=== PATIENT | female | born 1940 | race Caucasian/White ===

== ENCOUNTER → 2017-12-17 | Outpatient (CLI) | payer MEDICARE, BC ==
--- NOTE | 2017-12-18 07:30 | US ---
EXAMINATION TYPE: US carotid duplex BILAT DATE OF EXAM: 12/17/2017 COMPARISON: NONE CLINICAL HISTORY: I65.23 CAROTID BRUIT. Patient not aware which side carotid bruit was auscultated EXAM MEASUREMENTS: RIGHT: Peak Systolic Velocity (PSV) cm/sec ----- Right CCA: 70.2 ----- Right ICA: 100.9 ----- Right ECA: 81.1 ICA/CCA ratio: 1.4 RIGHT: End Diastole cm/sec ----- Right CCA: 19.7 ----- Right ICA: 22.7 ----- Right ECA: 11.7 LEFT: Peak Systolic Velocity (PSV) cm/sec ----- Left CCA: 73.4 ----- Left ICA: 66.7 ----- Left ECA: 70.0 ICA/CCA ratio: 0.9 LEFT: End Diastole cm/sec ----- Left CCA: 16.1 ----- Left ICA: 22.7 ----- Left ECA: 2.9 VERTEBRALS (direction of flow): Right Vertebral: Antegrade Left Vertebral: Antegrade Rhythm: Normal Mild, irregular intimal wall thickening is noted at bilateral carotid bifurcation, but PSV is wnl julio aterally. IMPRESSION: Mild degree of grayscale atheromatous plaquing with no sonographically evident hemodyna mically significant stenosis within either visualized carotid arterial system.
== END | disposition home or self-care (01) ==
LOC: RADUSWWP 16:05
PROVIDERS: ATTEND Family Medicine
DX: I65.23 Occlusion and stenosis of bilateral carotid arteries (principal)
CPT/HCPCS: 93880

== ENCOUNTER 2018-04-30 10:31 | Emergency (ER) | payer MEDICARE, BC ==
[2018-04-30 10:53] VITALS: RESP 18
[2018-04-30] MEDS ORDERED: MORPHINE SULFATE 4 MG/ML SYRINGE IV STA (11:32)
[2018-04-30] MEDS ORDERED: SODIUM CHLORIDE 0.9% 1,000 ML IV STA (11:32)
[2018-04-30] MEDS ORDERED: DOCUSATE 283 MG/5 ML ENEMA RECTAL STA (11:33)
--- NOTE | 2018-04-30 12:10 | ED ---
Abdominal Pain HPI - General Chief Complaint: Abdominal Pain Stated Complaint: severe abdominal & back pain Time Seen by Provider: 04/30/18 11:08 Source: patient, RN notes reviewed, old records reviewed Mode of arrival: ambulatory Limitations: no limitations - History of Present Illness Initial Comments: Patient is a 78-year-old female process restarts a chief complaint of one month of intermittent back pain and upper abdominal pain. Patient reports it's worse with certain movements. She's been evaluated multiple times in the ER. Patient has had this 2 CT scans, ultrasounds within the past month for his pain. Patient's states that she's not been able to have a bowel movement in the past week. She reports that she has no sensation that she needs to go to the bathroom. She's had normal urination. - Related Data Home Medications Medication Instructions Recorded Confirmed Tolterodine ER [Detrol LA] 4 mg PO DAILY 02/18/16 04/30/18 Aspirin EC [Ecotrin Low Dose] 81 mg PO DAILY 04/30/18 04/30/18 Levothyroxine Sodium [Synthroid] 125 mcg PO DAILY 04/30/18 04/30/18 Multivit-Min/Iron/Folic/Lutein 1 tab PO DAILY 04/30/18 04/30/18 [Centrum Silver Women Tablet] Sulindac 200 mg PO BID 04/30/18 04/30/18 Previous Rx's Medication Instructions Recorded traMADol HCl [Ultram] 50 mg PO Q6HR PRN 3 Days #12 tab 04/30/18 Allergies Allergy/AdvReac Type Severity Reaction Status Date / Time No Known Allergies Allergy Verified 04/30/18 11:34 Review of Systems ROS Statement: Those systems with pertinent positive or pertinent negative responses have been documented in the HPI. ROS Other: All systems not noted in ROS Statement are negative. Past Medical History Past Medical History: Thyroid Disorder Additional Past Medical History / Comment(s): pt had bilateral pulmonary embolism JAN 2016 History of Any Multi-Drug Resistant Organisms: None Reported Past Surgical History: Hysterectomy, Joint Replacement Additional Past Surgical History / Comment(s): knee replacement Past Psychological History: No Psychological Hx Reported Smoking Status: Never smoker Past Alcohol Use History: None Reported Past Drug Use History: None Reported General Exam - General Exam Comments Initial Comments: 78-year-old female. Alert and oriented 3. Patient appears in moderate discomfort movement. Limitations: no limitations General appearance: alert, in no apparent distress Head exam: Present: atraumatic, normocephalic, normal inspection Eye exam: Present: normal appearance ENT exam: Present: normal exam, mucous membranes moist Neck exam: Present: normal inspection. Absent: tenderness, meningismus, lymphadenopathy Respiratory exam: Present: normal lung sounds bilaterally. Absent: respiratory distress, wheezes, rales, rhonchi, stridor Cardiovascular Exam: Present: regular rate, normal rhythm, normal heart sounds. Absent: systolic murmur, diastolic murmur, rubs, gallop, clicks GI/Abdominal exam: Present: soft, tenderness (Epigastric tenderness worse with certain movements.), normal bowel sounds, other (Tenderness over the thoracic back). Absent: distended, guarding, rebound, rigid Extremities exam: Present: normal inspection, full ROM, normal capillary refill. Absent: tenderness, pedal edema, joint swelling, calf tenderness Back exam: Present: normal inspection Neurological exam: Present: alert, oriented X3, CN II-XII intact Psychiatric exam: Present: normal affect, normal mood Course Vital Signs 04/30/18 04/30/18 10:49 14:16 Temperature 98 F Pulse Rate 79 88 Respiratory 18 18 Rate Blood Pressure 128/82 145/69 O2 Sat by Pulse 98 96 Oximetry - Reevaluation(s) Reevaluation #1: 04/30/18 14:32 Patient was given an enema and has significant amount of stool removed. She feels much better at this time. Patient is have some pain with certain movements. I reviewed all of her lab work and previous ultrasounds imaging. The pains are muscular in nature. Medical Decision Making - Medical Decision Making 38-year-old female presents returns today with 1 month of back pain is worse with movement as well as Patient being transferred of her abdomen. At this time Patient has normal lab work. She's had reviewing of patient's previous CTs within the past 2 weeks as well as her ultrasound. These were negative for any acute pathology. Patient's lab work for today and stable from her previous hospitalization. Her hemoglobin was slightly low at 10.4 with this is the same as her last hospitalization. Patient states case discussed with Dr. Aguirre. This time recommended patient's pain seems to be muscle skeletally ensure we'll give her a short course of pain medication as well as stool softeners. She did have a large bowel movement and feels better after having an enema. I advised Patient to perform outpatient HIDA scan with close follow-up with her primary care physician. - Lab Data Result diagrams: 04/30/18 11:49 04/30/18 11:49 Lab Results 04/30/18 04/30/18 04/30/18 Range/Units 11:40 11:49 11:49 WBC 10.4 (3.8-10.6) k/uL RBC 3.79 L (3.80-5.40) m/uL Hgb 10.2 L (11.4-16.0) gm/dL Hct 33.0 L (34.0-46.0) % MCV 86.9 (80.0-100.0) fL MCH 27.0 (25.0-35.0) pg MCHC 31.0 (31.0-37.0) g/dL RDW 14.2 (11.5-15.5) % Plt Count 529 H (150-450) k/uL Neutrophils % 75 % Lymphocytes % 14 % Monocytes % 6 % Eosinophils % 4 % Basophils % 1 % Neutrophils # 7.8 H (1.3-7.7) k/uL Lymphocytes # 1.5 (1.0-4.8) k/uL Monocytes # 0.6 (0-1.0) k/uL Eosinophils # 0.4 (0-0.7) k/uL Basophils # 0.1 (0-0.2) k/uL Hypochromasia Slight PT 10.0 (9.0-12.0) sec INR 0.9 (<1.2) APTT 24.9 (22.0-30.0) sec Sodium 138 (137-145) mmol/L Potassium 4.3 (3.5-5.1) mmol/L Chloride 105 (98-107) mmol/L Carbon Dioxide 24 (22-30) mmol/L Anion Gap 9 mmol/L BUN 20 H (7-17) mg/dL Creatinine 1.00 (0.52-1.04) mg/dL Est GFR (CKD-EPI)AfAm 63 (>60 ml/min/1.73 sqM) Est GFR (CKD-EPI)NonAf 55 (>60 ml/min/1.73 sqM) Glucose 98 (74-99) mg/dL Calcium 9.6 (8.4-10.2) mg/dL Total Bilirubin 0.5 (0.2-1.3) mg/dL AST 23 (14-36) U/L ALT 16 (9-52) U/L Alkaline Phosphatase 96 (38-126) U/L Total Protein 8.1 (6.3-8.2) g/dL Albumin 3.9 (3.5-5.0) g/dL Amylase 97 (30-110) U/L Lipase 116 (23-300) U/L Urine Color Urine Appearance (Clear) Urine pH (5.0-8.0) Ur Specific [place] (1.001-1.035) Urine Protein (Negative) Urine Glucose (UA) (Negative) Urine Ketones (Negative) Urine Blood (Negative) Urine Nitrite (Negative) Urine Bilirubin (Negative) Urine Urobilinogen (<2.0) mg/dL Ur Leukocyte Esterase (Negative) Urine RBC (0-5) /hpf Urine WBC (0-5) /hpf Ur Squamous Epith Cells (0-4) /hpf Urine Bacteria (None) /hpf Urine Mucus (None) /hpf Stool Occult Blood (Negative) 04/30/18 04/30/18 Range/Units 12:40 13:39 WBC (3.8-10.6) k/uL RBC (3.80-5.40) m/uL Hgb (11.4-16.0) gm/dL Hct (34.0-46.0) % MCV (80.0-100.0) fL MCH (25.0-35.0) pg MCHC (31.0-37.0) g/dL RDW (11.5-15.5) % Plt Count (150-450) k/uL Neutrophils % % Lymphocytes % % Monocytes % % Eosinophils % % Basophils % % Neutrophils # (1.3-7.7) k/uL Lymphocytes # (1.0-4.8) k/uL Monocytes # (0-1.0) k/uL Eosinophils # (0-0.7) k/uL Basophils # (0-0.2) k/uL Hypochromasia PT (9.0-12.0) sec INR (<1.2) APTT (22.0-30.0) sec Sodium (137-145) mmol/L Potassium (3.5-5.1) mmol/L Chloride (98-107) mmol/L Carbon Dioxide (22-30) mmol/L Anion Gap mmol/L BUN (7-17) mg/dL Creatinine (0.52-1.04) mg/dL Est GFR (CKD-EPI)AfAm (>60 ml/min/1.73 sqM) Est GFR (CKD-EPI)NonAf (>60 ml/min/1.73 sqM) Glucose (74-99) mg/dL Calcium (8.4-10.2) mg/dL Total Bilirubin (0.2-1.3) mg/dL AST (14-36) U/L ALT (9-52) U/L Alkaline Phosphatase (38-126) U/L Total Protein (6.3-8.2) g/dL Albumin (3.5-5.0) g/dL Amylase (30-110) U/L Lipase (23-300) U/L Urine Color Yellow Urine Appearance Cloudy H (Clear) Urine pH 5.5 (5.0-8.0) Ur Specific [place] 1.015 (1.001-1.035) Urine Protein Trace H (Negative) Urine Glucose (UA) Negative (Negative) Urine Ketones Negative (Negative) Urine Blood Trace H (Negative) Urine Nitrite Negative (Negative) Urine Bilirubin Negative (Negative) Urine Urobilinogen <2.0 (<2.0) mg/dL Ur Leukocyte Esterase Large H (Negative) Urine RBC 9 H (0-5) /hpf Urine WBC 11 H (0-5) /hpf Ur Squamous Epith Cells 12 H (0-4) /hpf Urine Bacteria Rare H (None) /hpf Urine Mucus Rare H (None) /hpf Stool Occult Blood Negative (Negative) - Radiology Data Radiology results: report reviewed Stable splenic cyst. Nephrolithiasis on the left. Disposition Clinical Impression: Constipation, Back pain, Upper abdominal pain Disposition: HOME SELF-CARE Condition: Good Instructions (If sedation given, give patient instructions): Abdominal Pain (ED ) Additional Instructions: Patient has a close follow-up with your primary care physician. Patient should perform outpatient HIDA scan test. Return to the emergency department if any alarming signs or symptoms occur. Prescriptions: traMADol HCl [Ultram] 50 mg PO Q6HR PRN 3 Days #12 tab PRN Reason: Pain Is patient prescribed a controlled substance at d/c from ED?: Yes When asked, does pt state using other controlled substances?: No If prescribed controlled substance>3 days was MAPS reviewed?: Prescribed <3 Days If opioid is for acute pain is fill amount 7 days or less?: Yes If Rx opioid, was Start Talking consent form obtained?: Yes Referrals: None,Stated [Primary Care Provider] - 1-2 days Chai Patterson MD [STAFF PHYSICIAN] - 1-2 days Time of Disposition: 14:37
[2018-04-30 12:12] LABS: Basophils # (A) 0.1 k/uL (0-0.2); Basophils % (A) 1 %; Eosinophils # (A) 0.4 k/uL (0-0.7); Eosinophils % (A) 4 %; HGB 10.2 gm/dL (11.4-16.0); Hypochromasia Slight; Lymphocytes # (A) 1.5 k/uL (1.0-4.8); Lymphocytes % (A) 14 %; MCV 86.9 fL (80.0-100.0); Mean Platelet Volume 6.5; Monocytes # (A) 0.6 k/uL (0-1.0); Monocytes % (A) 6 %; Neutrophils # (A) 7.8 k/uL (1.3-7.7); Neutrophils % (A) 75 %; Platelet Count 529 k/uL (150-450); RBC 3.79 m/uL (3.80-5.40); RDW 14.2 % (11.5-15.5); WBC 10.4 k/uL (3.8-10.6)
[2018-04-30 12:27] LABS: Albumin 3.9 g/dL (3.5-5.0); Calcium 9.6 mg/dL (8.4-10.2); Potassium 4.3 mmol/L (3.5-5.1); Total Bilirubin 0.5 mg/dL (0.2-1.3); Total Protein 8.1 g/dL (6.3-8.2)
[2018-04-30 12:34] LABS: INR 0.9 (<1.2); Partial Thromboplastin Time 24.9 sec (22.0-30.0)
--- NOTE | 2018-04-30 12:52 | XR ---
Abdomen HISTORY: Pain Frontal view the abdomen on 2 images correlated to prior abdomen 10/04/2017, CT abdomen 02/18/2016 The spherical calcification in the left upper quadrant associated with the spleen cyst is stable. Inc reased density seen over the lower pole of the left kidney compatible with patient's nephrolithiasis. There is no pneumoperitoneum or bowel obstruction. Spinal curvature is again noted. There are degene rative disc changes of the lower lumbar spine. Sclerotic focus is stable in the right femoral head. L liliana bases are clear. IMPRESSION: Stable splenic cyst calcification. Nephrolithiasis on the left.
[2018-04-30 13:26] LABS: Appearance,Urine Cloudy (Clear); Bacteria,Urine Rare /hpf; Bilirubin,Urine Negative (Negative); Blood,Urine Trace (Negative); Color,Urine Yellow; Glucose,Urine (UA) Negative (Negative); Ketones,Urine Negative (Negative); Leukocyte Esterase,Urine Large (Negative); Mucus,Urine Rare /hpf; Nitrite,Urine Negative (Negative); PH, Urine 5.5 (5.0-8.0); Protein,Urine Trace (Negative); RBC,Urine 9 /hpf (0-5); Specific Gravity,Urine 1.015 (1.001-1.035); Squamous Epithelial Cell,Urine 12 /hpf (0-4); Urobilinogen,Urine <2.0 mg/dL (<2.0); WBC,Urine 11 /hpf (0-5)
[2018-04-30 15:12] VITALS: BP 128/66; PULSE 82; TEMP 101
== END 2018-04-30 15:11 | disposition home or self-care (01) ==
LOC: EC 10:31
DX: K59.00 Constipation, unspecified (principal); M54.9 Dorsalgia, unspecified; D64.9 Anemia, unspecified; E07.9 Disorder of thyroid, unspecified; Z90.710 Acquired absence of both cervix and uterus; Z96.659 Presence of unspecified artificial knee joint; Z79.82 Long term (current) use of aspirin; Z79.890 Hormone replacement therapy; Z79.1 Long term (current) use of non-steroidal anti-inflammatories (NSAID); Z79.899 Other long term (current) drug therapy; Z53.8 Procedure and treatment not carried out for other reasons
CPT/HCPCS: 36415; 80053; 82150; 83690; 85025; 85610; 85730; 82272; 81001; 74018; 99284; 96374; 96361; J2270

== ENCOUNTER 2023-02-01 07:43 | Day surgery (SDC) | payer BC, MEDICARE ==
[2023-01-29 16:01] VITALS: BMI 29.8
[~2023-02-01 07:43] MED LIST: LACTATED RINGERS 1,000 ML IV SCH
[2023-02-01] MEDS ORDERED: LIDOCAINE 1% (10MG/ML) FOR IV START INTRADERMA ONE (08:20)
[2023-02-01 08:28] VITALS: TEMP 98.8
[2023-02-01] MEDS ORDERED: LIDOCAINE 1% INJ 10MG/ML (20 ML MDV) ONE (08:48)
[2023-02-01] MEDS ORDERED: PROPOFOL 10 MG/ML 20 ML VIAL IV ONE (08:48)
--- NOTE | 2023-02-01 08:51 | P.GSHP ---
History of Present Illness H&P Date: 02/01/23 Chief Complaint: Diarrhea This is a 82-year-old female who has complaints of diarrhea. Patient presents today for colonoscopy Past Medical History Past Medical History: Osteoarthritis (OA), Pulmonary Embolus (PE), Thyroid Disorder Additional Past Medical History / Comment(s): bilateral pulmonary embolism JAN 2016, states stomach cramps with bowel movements., left hip pain, hx kidney stones., hx of "blood infection " after back surgery with out pt antibiotic tx. History of Any Multi-Drug Resistant Organisms: None Reported Past Surgical History: Back Surgery, Hysterectomy, Joint Replacement Additional Past Surgical History / Comment(s): total left knee replacement, back surgery with hardware. Past Anesthesia/Blood Transfusion Reactions: No Reported Reaction Past Psychological History: No Psychological Hx Reported Smoking Status: Never smoker Past Alcohol Use History: None Reported Past Drug Use History: None Reported - Past Family History Mother Family Medical History: No Reported History Medications and Allergies Home Medications Medication Instructions Recorded Confirmed Type Tolterodine ER [Detrol LA] 4 mg PO DAILY 02/18/16 01/29/23 History Aspirin EC [Ecotrin Low Dose] 81 mg PO DAILY 04/30/18 01/29/23 History Sulindac 200 mg PO DAILY 04/30/18 01/29/23 History Cranberry Fruit Extract [Cranberry] 500 mg PO DAILY 01/29/23 01/29/23 History Gabapentin [Neurontin] 300 mg PO BID 01/29/23 01/29/23 History Levothyroxine Sodium 112 mcg PO DAILY 01/29/23 01/29/23 History Multivit with Calcium,Iron,Min 1 each PO DAILY 01/29/23 01/29/23 History [Women's Multivitamin] Allergies Allergy/AdvReac Type Severity Reaction Status Date / Time No Known Allergies Allergy Verified 02/01/23 08:05 Surgical - Exam Vital Signs Temp Pulse Resp BP Pulse Ox 98.8 F 82 16 138/62 95 02/01/23 08:07 02/01/23 08:07 02/01/23 08:07 02/01/23 08:07 02/01/23 08:07 - General well developed, well nourished, no distress - Eyes PERRL - ENT normal pinna - Neck no masses - Respiratory normal expansion - Cardiovascular Rhythm: regular - Abdomen Abdomen: soft, non tender Assessment and Plan Assessment: Diarrhea. We'll perform colonoscopy.
--- NOTE | 2023-02-01 09:04 | P.OP ---
Date of Procedure: 02/01/23 Preoperative Diagnosis: Diarrhea Postoperative Diagnosis: Diverticulosis Procedure(s) Performed: Colonoscopy Anesthesia: MAC Surgeon: Chai Patterson Pathology: none sent Condition: stable Disposition: PACU Description of Procedure: Patient's placed on the endoscopy table in the lateral position. She received IV sedation. The digital rectal exam was performed. This revealed no abnormalities. Flexible colonoscope was then placed patient anus and passed throughout the colon. Patient extensive diverticular disease and sigmoid colon. Scope was passed beyond the left colon. At this point the scope was withdrawn. The diverticular changes were noted;. The scope back the rectum this appeared normal. Scope withdrawn for patient. Patient scheduled for a barium enema.
[2023-02-01 09:38] VITALS: BP 142/71; PULSE 67; RESP 18
== END 2023-02-01 10:50 | disposition home or self-care (01) ==
LOC: ORWHC2ENDO 07:43
PROVIDERS: ATTEND Surgery
DX: K57.30 Diverticulosis of large intestine without perforation or abscess without bleeding (principal); M19.90 Unspecified osteoarthritis, unspecified site; E07.9 Disorder of thyroid, unspecified; Z87.442 Personal history of urinary calculi; Z86.711 Personal history of pulmonary embolism; Z79.82 Long term (current) use of aspirin; Z79.890 Hormone replacement therapy; Z79.899 Other long term (current) drug therapy; Z90.710 Acquired absence of both cervix and uterus; Z98.890 Other specified postprocedural states
CPT/HCPCS: J2001; J2704; G0121; 45378

== ENCOUNTER 2023-02-01 12:42 | Emergency (ER) | payer MEDICARE ==
[2023-02-01 13:03] VITALS: TEMP 97.5
[2023-02-01] MEDS ORDERED: ONDANSETRON ODT 4 MG TAB PO STA (13:29)
--- NOTE | 2023-02-01 13:44 | ED ---
Nausea/Vomiting/Diarrhea HPI - General Source: patient, RN notes reviewed Mode of arrival: wheelchair Limitations: no limitations <Shawn Plasencia - Last Filed: 02/01/23 13:42> <Los Guzman - Last Filed: 02/01/23 18:39> - General Chief complaint: Nausea/Vomiting/Diarrhea Stated complaint: abd pain and nausea from endo Time Seen by Provider: 02/01/23 13:42 - History of Present Illness Initial comments: 82-year-old female presents emergency from from endoscopy after she started developing nausea vomiting and lightheadedness. Patient states that she has not eaten anything since Sunday. Patient states she went to have a colonoscopy and endoscopy but there was too much scar tissue they attempted to bear swallow but she gets sick and she was sent here. (Shawn Plasencia) - Related Data Home Medications Medication Instructions Recorded Confirmed Tolterodine ER [Detrol LA] 4 mg PO DAILY 02/18/16 01/29/23 Aspirin EC [Ecotrin Low Dose] 81 mg PO DAILY 04/30/18 01/29/23 Sulindac 200 mg PO DAILY 04/30/18 01/29/23 Cranberry Fruit Extract [Cranberry] 500 mg PO DAILY 01/29/23 01/29/23 Gabapentin [Neurontin] 300 mg PO BID 01/29/23 01/29/23 Levothyroxine Sodium 112 mcg PO DAILY 01/29/23 01/29/23 Multivit with Calcium,Iron,Min 1 each PO DAILY 01/29/23 01/29/23 [Women's Multivitamin] Allergies Allergy/AdvReac Type Severity Reaction Status Date / Time No Known Allergies Allergy Verified 02/01/23 12:59 Review of Systems ROS Other: All systems not noted in ROS Statement are negative. <Shawn Plasencia - Last Filed: 02/01/23 13:42> ROS Other: All systems not noted in ROS Statement are negative. <Los Guzman - Last Filed: 02/01/23 18:39> ROS Statement: Those systems with pertinent positive or pertinent negative responses have been documented in the HPI. Past Medical History Past Medical History: Osteoarthritis (OA), Pulmonary Embolus (PE), Thyroid Disorder Additional Past Medical History / Comment(s): bilateral pulmonary embolism JAN 2016, states stomach cramps with bowel movements., left hip pain, hx kidney stones., hx of "blood infection " after back surgery with out pt antibiotic tx. History of Any Multi-Drug Resistant Organisms: None Reported Past Surgical History: Back Surgery, Hysterectomy, Joint Replacement Additional Past Surgical History / Comment(s): total left knee replacement, back surgery with hardware. Past Anesthesia/Blood Transfusion Reactions: No Reported Reaction Past Psychological History: No Psychological Hx Reported Smoking Status: Never smoker Past Alcohol Use History: None Reported Past Drug Use History: None Reported - Past Family History Mother Family Medical History: No Reported History <Shawn Plasencia - Last Filed: 02/01/23 13:42> General Exam Limitations: no limitations <Shawn Plasencia - Last Filed: 02/01/23 13:42> Limitations: no limitations General appearance: alert, in no apparent distress Head exam: Present: atraumatic, normocephalic Eye exam: Present: normal appearance. Absent: scleral icterus, conjunctival injection ENT exam: Present: normal oropharynx Neck exam: Present: normal inspection Respiratory exam: Present: normal lung sounds bilaterally. Absent: respiratory distress, wheezes, rales, rhonchi, stridor, accessory muscle use Cardiovascular Exam: Present: regular rate, normal rhythm, normal heart sounds. Absent: systolic murmur, diastolic murmur, rubs, gallop GI/Abdominal exam: Present: soft. Absent: distended, tenderness, guarding, rebound, rigid, mass, pulsatile mass, hernia Extremities exam: Present: normal inspection, normal capillary refill. Absent: pedal edema, calf tenderness Back exam: Present: normal inspection. Absent: CVA tenderness (R), CVA tenderness (L) Neurological exam: Present: alert Skin exam: Present: warm, dry, intact, normal color. Absent: rash <Los Guzman - Last Filed: 02/01/23 18:39> - General Exam Comments Initial Comments: Visual Physical Exam Vital signs reviewed General: Well-appearing, nontoxic, no acute distress. Head: Normocephalic, atraumatic Eyes: PERRLA, EOMI ENT: Airway patent Chest: Nonlabored breathing Skin: No visual rash, normal skin tone Neuro: Alert and oriented 3 Musculoskeletal: No gross abnormalities (Shawn Plasencia) Course Vital Signs 02/01/23 02/01/23 02/01/23 12:56 15:23 16:42 Temperature 97.5 F L Pulse Rate 66 70 73 Respiratory 16 20 20 Rate Blood Pressure 143/64 145/78 117/37 O2 Sat by Pulse 97 98 97 Oximetry Medical Decision Making <Shawn Plasencia - Last Filed: 02/01/23 13:42> - Lab Data Result diagrams: 02/01/23 13:02 02/01/23 13:02 - EKG Data -: EKG Interpreted by Ok EKG shows normal: sinus rhythm, axis (Normal), intervals (Normal), QRS complexes (RSR prime, possible right ventricular conduction delay) Rate: normal (Rate 69 bpm) <WillkuldipLos - Last Filed: 02/01/23 18:39> - Medical Decision Making I completed the quick note portion of this chart signed Shawn Plasencia PA-C (Shawn Plasencia) - Lab Data Lab Results 02/01/23 02/01/23 02/01/23 Range/Units 13:02 13:02 13:02 WBC 8.8 (3.8-10.6) k/uL RBC 4.75 (3.80-5.40) m/uL Hgb 13.9 (11.4-16.0) gm/dL Hct 42.9 (34.0-46.0) % MCV 90.4 (80.0-100.0) fL MCH 29.3 (25.0-35.0) pg MCHC 32.4 (31.0-37.0) g/dL RDW 14.3 (11.5-15.5) % Plt Count 267 (150-450) k/uL MPV 8.0 Neutrophils % 87 % Lymphocytes % 9 % Monocytes % 3 % Eosinophils % 1 % Basophils % 0 % Neutrophils # 7.6 (1.3-7.7) k/uL Lymphocytes # 0.8 L (1.0-4.8) k/uL Monocytes # 0.3 (0-1.0) k/uL Eosinophils # 0.1 (0-0.7) k/uL Basophils # 0.0 (0-0.2) k/uL Sodium 142 (137-145) mmol/L Potassium 4.6 (3.5-5.1) mmol/L Chloride 104 (98-107) mmol/L Carbon Dioxide 23 (22-30) mmol/L Anion Gap 15 mmol/L BUN 16 (7-17) mg/dL Creatinine 0.89 (0.52-1.04) mg/dL Est GFR (CKD-EPI)AfAm 70 (>60 ml/min/1.73 sqM) Est GFR (CKD-EPI)NonAf 61 (>60 ml/min/1.73 sqM) Glucose 103 H (74-99) mg/dL Plasma Lactic Acid Anshul 1.1 (0.7-2.0) mmol/L Calcium 9.9 (8.4-10.2) mg/dL Total Bilirubin 0.7 (0.2-1.3) mg/dL AST 28 (14-36) U/L ALT 15 (4-34) U/L Alkaline Phosphatase 108 (38-126) U/L Troponin I (0.000-0.034) ng/mL Total Protein 8.0 (6.3-8.2) g/dL Albumin 4.7 (3.5-5.0) g/dL Amylase 71 (30-110) U/L Lipase 112 (23-300) U/L Urine Color Urine Appearance (Clear) Urine pH (5.0-8.0) Ur Specific [place] (1.001-1.035) Urine Protein (Negative) Urine Glucose (UA) (Negative) Urine Ketones (Negative) Urine Blood (Negative) Urine Nitrite (Negative) Urine Bilirubin (Negative) Urine Urobilinogen (<2.0) mg/dL Ur Leukocyte Esterase (Negative) 02/01/23 02/01/23 Range/Units 15:21 17:15 WBC (3.8-10.6) k/uL RBC (3.80-5.40) m/uL Hgb (11.4-16.0) gm/dL Hct (34.0-46.0) % MCV (80.0-100.0) fL MCH (25.0-35.0) pg MCHC (31.0-37.0) g/dL RDW (11.5-15.5) % Plt Count (150-450) k/uL MPV Neutrophils % % Lymphocytes % % Monocytes % % Eosinophils % % Basophils % % Neutrophils # (1.3-7.7) k/uL Lymphocytes # (1.0-4.8) k/uL Monocytes # (0-1.0) k/uL Eosinophils # (0-0.7) k/uL Basophils # (0-0.2) k/uL Sodium (137-145) mmol/L Potassium (3.5-5.1) mmol/L Chloride (98-107) mmol/L Carbon Dioxide (22-30) mmol/L Anion Gap mmol/L BUN (7-17) mg/dL Creatinine (0.52-1.04) mg/dL Est GFR (CKD-EPI)AfAm (>60 ml/min/1.73 sqM) Est GFR (CKD-EPI)NonAf (>60 ml/min/1.73 sqM) Glucose (74-99) mg/dL Plasma Lactic Acid Anshul (0.7-2.0) mmol/L Calcium (8.4-10.2) mg/dL Total Bilirubin (0.2-1.3) mg/dL AST (14-36) U/L ALT (4-34) U/L Alkaline Phosphatase (38-126) U/L Troponin I <0.012 (0.000-0.034) ng/mL Total Protein (6.3-8.2) g/dL Albumin (3.5-5.0) g/dL Amylase (30-110) U/L Lipase (23-300) U/L Urine Color Colorless Urine Appearance Clear (Clear) Urine pH 5.5 (5.0-8.0) Ur Specific [place] 1.014 (1.001-1.035) Urine Protein Negative (Negative) Urine Glucose (UA) Negative (Negative) Urine Ketones 3+ H (Negative) Urine Blood Negative (Negative) Urine Nitrite Negative (Negative) Urine Bilirubin Negative (Negative) Urine Urobilinogen <2.0 (<2.0) mg/dL Ur Leukocyte Esterase Negative (Negative) Disposition <Shawn Plasencia - Last Filed: 02/01/23 13:42> Is patient prescribed a controlled substance at d/c from ED?: No <Los Guzman - Last Filed: 02/01/23 18:39> Clinical Impression: Vertigo Disposition: HOME SELF-CARE Condition: Good Instructions (If sedation given, give patient instructions): Vertigo (ED) Referrals: Erich Pineda MD [Primary Care Provider] - 1-2 days Teddy Perez DO [Doctor of Osteopathic Medicine] - 1-2 days
[2023-02-01 15:52] LABS: Basophils % (A) 0 %; Eosinophils # (A) 0.1 k/uL (0-0.7); Eosinophils % (A) 1 %; HCT 42.9 % (34.0-46.0); HGB 13.9 gm/dL (11.4-16.0); Lymphocytes # (A) 0.8 k/uL (1.0-4.8); Lymphocytes % (A) 9 %; MCH 29.3 pg (25.0-35.0); MCHC 32.4 g/dL (31.0-37.0); MCV 90.4 fL (80.0-100.0); Monocytes # (A) 0.3 k/uL (0-1.0); Monocytes % (A) 3 %; Neutrophils # (A) 7.6 k/uL (1.3-7.7); Neutrophils % (A) 87 %; Platelet Count 267 k/uL (150-450); RBC 4.75 m/uL (3.80-5.40); RDW 14.3 % (11.5-15.5); WBC 8.8 k/uL (3.8-10.6)
[2023-02-01 15:56] LABS: ALT 15 U/L (4-34); AST 28 U/L (14-36); African American GFR (CKD) 70 (>60 ml/min/1.73 sqM); Albumin 4.7 g/dL (3.5-5.0); Alkaline Phosphatase 108 U/L (38-126); Amylase 71 U/L (30-110); Anion Gap 15 mmol/L; Blood Urea Nitrogen 16 mg/dL (7-17); Calcium 9.9 mg/dL (8.4-10.2); Carbon Dioxide 23 mmol/L (22-30); Chloride 104 mmol/L (98-107); Glucose 103 mg/dL (74-99); Lipase 112 U/L (23-300); Non-African American GFR(CKD) 61 (>60 ml/min/1.73 sqM); Potassium 4.6 mmol/L (3.5-5.1); Sodium 142 mmol/L (137-145); Total Bilirubin 0.7 mg/dL (0.2-1.3)
[2023-02-01 16:24] LABS: Appearance,Urine Clear (Clear); Bilirubin,Urine Negative (Negative); Blood,Urine Negative (Negative); Color,Urine Colorless; Glucose,Urine (UA) Negative (Negative); Ketones,Urine 3+ (Negative); Leukocyte Esterase,Urine Negative (Negative); Nitrite,Urine Negative (Negative); PH, Urine 5.5 (5.0-8.0); Protein,Urine Negative (Negative); Specific Gravity,Urine 1.014 (1.001-1.035); Urobilinogen,Urine <2.0 mg/dL (<2.0)
--- NOTE | 2023-02-01 16:43 | XR ---
EXAMINATION TYPE: XR abdomen acute w cxr DATE OF EXAM: 02/01/2023 4:33 PM CLINICAL INDICATION:Female, 82 years old with history of vomiting; [facility] COMPARISON: 02/18/2016. TECHNIQUE: Two radiographic views of the abdomen (upright and supine) and a frontal chest radiograph were obtained. FINDINGS CHEST: Lungs/Pleura: The lungs are clear. There is no evidence of pleural effusion, focal consolidation or p neumothorax. Mediastinum: Unremarkable. Vasculature: Normal. Heart: Normal in size. Musculoskeletal: The osseous structures are intact. Post fixation changes to the spine appear intact. Other findings: No significant. FINDINGS ABDOMEN: Bowel gas pattern: Normal without dilated loops of small or large bowel. 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 Fecal material and gas ar e demonstrated throughout the colon and rectum. Abnormal calcifications: None. Musculoskeletal: Stable sclerotic focus in the proximal right femur. Other: None. IMPRESSION: 1. No radiographic evidence for acute abdominal process. 2. No acute cardiopulmonary process
[2023-02-01] MEDS ORDERED: DEXTROSE 5%-0.45% NACL 1,000 ML IV ONE (17:13)
[2023-02-01 19:33] VITALS: BP 134/66; PULSE 68; RESP 16
== END 2023-02-01 19:20 | disposition home or self-care (01) ==
LOC: EC 12:42
DX: R42 Dizziness and giddiness (principal); E07.9 Disorder of thyroid, unspecified; M19.90 Unspecified osteoarthritis, unspecified site; Z79.82 Long term (current) use of aspirin; Z79.890 Hormone replacement therapy; Z79.899 Other long term (current) drug therapy
CPT/HCPCS: 36415; 74022; 80053; 81003; 82150; 83605; 83690; 84484; 85025; 93005; 96360; 96361; 99284

== ENCOUNTER → 2023-02-02 | Outpatient (CLI) | payer MEDICARE ==
--- NOTE | 2023-02-02 12:45 | FL ---
EXAMINATION TYPE: FL barium enema DATE OF EXAM: 02/02/2023 12:33 PM CLINICAL INDICATION:Female, 82 years old with history of Z53.9; COMPARISON: 02/18/2016. TECHNIQUE: The procedure was explained and patient history elicited. All patient questions were answ ered prior to beginning. Multiple spot fluoroscopic images of the colon were obtained after the recta l administration of liquid barium as the contrast agent. Multiple postprocedural overhead images, w ere obtained and reviewed. Fluoroscopic time:53 seconds Fluoroscopic images: None Radiographs taken: 32 DAP: No DAP [id number] FINDINGS: Limited evaluation secondary to patient unable to lay flat. The adult crossing guard abdominal radiograph demonstrates a normal bowel gas pattern without dilated loops of smal l or large bowel. There is no evidence for organomegaly or pneumoperitoneum. No abnormal calcifica tions. The visualized osseous structures are intact. Fixation hardware in the spine. Peripherally juan josé cified splenic pseudocyst The colon demonstrates normal course and contour without evidence of focal stricture, internal filling defects . Scattered colonic diverticula present. Views of the cecum with manual compression are unremarkable. Postevacuation images are unremarkable. IMPRESSION: 1. Limited evaluation of the hepatic flexure and sigmoid colon due to overlapping bowel. No evidence for abnormal stricture or mass lesion within the sigmoid colon. 2. Colonic diverticulosis.
== END | disposition home or self-care (01) ==
LOC: RADXRMAIN 11:04
PROVIDERS: ATTEND Surgery
DX: K57.30 Diverticulosis of large intestine without perforation or abscess without bleeding (principal)
CPT/HCPCS: 74270

== ENCOUNTER → 2023-05-01 | Outpatient (CLI) | payer MEDICARE ==
--- NOTE | 2023-05-01 23:08 | XR ---
EXAMINATION TYPE: XR KUB DATE OF EXAM: 05/01/2023 COMPARISON: 02/01/2023 INDICATION: TECHNIQUE: Single view abdomen supine view FINDINGS: There is a normal bowel gas pattern. Psoas margins are normal. No organomegaly is present. There is a large spherical calcification in the left upper quadrant, present previously. Large calcif ications in the left renal pelvis measuring 4.5 cm. Bilateral ureteral stents are present. IMPRESSION: 1. Large left renal calcification measuring 4.5 cm
== END | disposition home or self-care (01) ==
LOC: RADXRMAIN 16:15
PROVIDERS: ATTEND Urology
DX: N28.89 Other specified disorders of kidney and ureter (principal); N20.0 Calculus of kidney
CPT/HCPCS: 74018

== ENCOUNTER → 2023-05-04 | Outpatient (CLI) | payer MEDICARE ==
--- NOTE | 2023-05-04 15:49 | XR ---
EXAMINATION TYPE: XR KUB DATE OF EXAM: 05/04/2023 COMPARISON: 05/01/2023 INDICATION: Left renal stone TECHNIQUE: Single view abdomen spine FINDINGS: There is a normal bowel gas pattern. Psoas margins are normal. No organomegaly is present. The large calcific sphere in the left upper quadrant is stable. The large calcification at the inferior pole left kidney is unchanged. Bilateral ureteral stents marylu in present. IMPRESSION: 1. No significant interval change in the abdomen. 2. Large left inferior pole renal stone remains present
== END | disposition home or self-care (01) ==
LOC: RADXRMAIN 15:07
PROVIDERS: ATTEND Urology
DX: N20.0 Calculus of kidney (principal)
CPT/HCPCS: 74018

== ENCOUNTER → 2023-07-04 | Outpatient (CLI) | payer MEDICARE ==
--- NOTE | 2023-07-04 10:19 | XR ---
EXAMINATION TYPE: XR KUB DATE OF EXAM: 07/04/2023 9:50 AM CLINICAL INDICATION:Female, 83 years old with history of N20.0 CALCULUS OF KIDNEY; [facility] COMPARISON: CT 02/18/2016. KB 05/04/2023. TECHNIQUE: One radiographic view of the abdomen was obtained. FINDINGS: The bowel gas pattern is nonspecific without dilated loops of small or large bowel. There i s no evidence for organomegaly or pneumoperitoneum. The osseous structures are intact. Bilateral re nal calculi measuring up to 9 mm on the right and 44 x 29 mm on the left. Fecal material and gas are demonstrated throughout the colon and rectum. Left upper quadrant are from a calcifying lesion favor ed represent pseudocysts in the spleen on prior imaging. The right ureteral stent superior pigtail is felt to be out of the renal pelvis. The left ureteral st ent appears in appropriate position. IMPRESSION: 1. Bilateral ureteral stents, the right ureteral stent superior pigtail is inferior to the renal pel vis. The finding on the right is new from prior 05/04/2023. 2. Bilateral renal calculi. 3. Nonspecific bowel gas pattern without radiographic evidence for acute process. 4. Splenic pseudocyst with peripheral cortication.
== END | disposition home or self-care (01) ==
LOC: RADXRMAIN 09:22
PROVIDERS: ATTEND Urology
DX: N20.0 Calculus of kidney (principal)
CPT/HCPCS: 74018

== ENCOUNTER 2023-10-17 07:00 | Inpatient (IN) | payer MEDICARE ==
[2023-10-17] MEDS ORDERED: HYDROcodone/APAP 5-325MG 1 EACH TAB ONE ×2 (18:53→23:32)
[2023-10-17] MEDS ORDERED: MORPHINE SULFATE 2 MG/ML SYRINGE ONE (21:43)
[2023-10-18] MEDS ORDERED: HYDROcodone/APAP 5-325MG 1 EACH TAB ONE ×2 (05:31→11:20)
--- NOTE | 2023-10-26 15:53 | HP ---
HISTORY AND PHYSICAL PREOPERATIVE DIAGNOSIS: Staghorn calculus, left. PROCEDURE TO BE PERFORMED: Percutaneous nephrostolithotomy, left. HISTORY OF PRESENT ILLNESS: Shanell John is an 83-year-old female. She is referred to me by Dr. Galvez because of kidney stones. She was in [facility] and was identified to have a very large left renal stone. She has a full staghorn. She has had previous right ureteroscopy and laser lithotripsy. Because of the large left renal stone, she has been given options including percutaneous nephrostolithotomy, anatrophic nephrolithotomy, referral to a medical center. She comes for a left percutaneous nephrostolithotomy. The risks and complications have been noted. MEDICAL ILLNESSES: Include hypothyroidism, arthritis, kidney stones. SURGICAL HISTORY: Includes hysterectomy, ureteroscopy. ALLERGIES: None. FAMILY HISTORY: Noncontributory. SOCIAL HISTORY: Noncontributory. MEDICATIONS: 1. Tylenol p.r.n. 2. Aspirin p.r.n. 3. Gabapentin 300 mg b.i.d. 4. Dilaudid p.r.n. 5. Levothyroxine. 6. Oxybutynin 5 mg b.i.d. 7. Tramadol p.r.n. REVIEW OF SYSTEMS: Negative. PHYSICAL EXAMINATION: GENERAL: She is a pleasant female, in no immediate distress. VITAL SIGNS: She is 5 feet 2 inches, 160 pounds, pulse 84, respirations 16, and blood pressure 116/78. HEENT: Clear. CHEST: Clear to auscultation. HEART: Without murmur or gallop. ABDOMEN: Soft. No mass or organomegaly. EXTREMITIES: No edema. NEUROLOGIC: Grossly intact. IMPRESSION: Shanell John is an 83-year-old female with staghorn calculus in the left kidney. She comes for a left percutaneous nephrostolithotomy. The risks and complications had been outlined. MMODL / IJN: [id number] /
--- NOTE | 2023-10-26 15:54 | OP ---
OPERATIVE REPORT DATE OF SERVICE : DIAGNOSIS: Staghorn calculus, left. PROCEDURE: Percutaneous access. DESCRIPTION OF PROCEDURE: The patient is an 83-year-old female with a full grown staghorn calculus greater than 3 cm. She comes for percutaneous nephrostolithotomy. I will perform percutaneous access. The patient has previously been anesthetized. She previously had a ureteral catheter placed in the left kidney. She is in a prone position. I filled the collecting system with air. Using a 21-gauge Chiba needle, I punctured the upper pole calyx on the left side. I then advanced the Odell Mandril wire fortunately through the collecting system down the ureter. Then over the wire, I advanced the 6-Tristanian dilating catheter. I removed inner sheath of the dilating catheter and passed an 0.035 superstiff wire down the ureter. I then passed 8 to 10-Tristanian exchange catheters, removed the inner catheter and passed a 2nd wire down the ureter. Over the working wire, I then passed the 10 to 30-Tristanian nephrostomy tract balloon and the nephrostomy tract was dilated. I then passed working sheath into the collecting system. IMPRESSION: Successful nephrostomy tube placement. MMODL / IJN: [id number] /
--- NOTE | 2023-11-12 17:08 | FL ---
Fluoroscopy INDICATION: Pain FINDINGS: Fluoroscopy time: 81 seconds. Total dose area product (DAP) in uGy*m?, mGy*cm? (or similar): 7.4776 Images obtained: 7. IMPRESSION: 1. Documentation of fluoroscopy.
== END 2023-10-18 12:25 | disposition home or self-care (01) | DRG 661 ==
LOC: OR 07:00 → DISRECOVER 07:57
PROVIDERS: ADMIT Urology; ATTEND Urology
PROC: 0TC43ZZ Extirpation of Matter from Left Kidney Pelvis, Percutaneous Approach (ICD-10-PCS; principal; 2023-10-17)
DX: N20.0 Calculus of kidney (principal); M19.90 Unspecified osteoarthritis, unspecified site; E03.9 Hypothyroidism, unspecified; Z79.890 Hormone replacement therapy; Z79.82 Long term (current) use of aspirin; Z79.899 Other long term (current) drug therapy